=== PATIENT | female | born 1960 | race African-American/Black ===

== ENCOUNTER 2021-06-20 18:14 | Emergency (ER) | payer MEDICAID, SELFPAY ==
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
[2021-06-20 18:16] VITALS: BP 191/84; PULSE 95; RESP 20; TEMP 36.1; O2SAT 95
--- NOTE | 2021-06-20 20:08 | ED.GENADULT ---
HPI - General Adult General Chief complaint: Headache Stated complaint: headache, not feeling well Time Seen by Provider: 06/20/21 19:26 History of Present Illness HPI narrative: Patient is a 61-year-old female that presents the emergency department with chief complaint of flulike symptoms. Patient reports that she has been vaccinated with Covid patient states that she is been coughing having headache body aches patient has had nausea no vomiting patient states symptoms or not improved by anything nor they worsened by anything the patient reports that she is a resident of a local senior care reports that also she has history of diabetes but has not been taking her oral hypoglycemics for several months because she ran out. Patient also reports has not been checking her blood sugars. Related Data Allergies Allergy/AdvReac Type Severity Reaction Status Date / Time NKDA Allergy Unknown Unknown Uncoded 06/20/21 20:18 NONE Allergy Unknown Unknown Uncoded 06/20/21 20:18 Review of Systems Review of Systems: A 10 system review of systems was completed on the patient and is negative except for what is stated in the HPI. Nursing and ancillary documentation was reviewed. PMFSH Comments Type 2 diabetes Exam Narrative: GENERAL: Well-appearing, well-nourished, and in no acute distress. HEAD: Normocephalic, atraumatic. EYES: PERRLA and EOMI. ENT: Nares clear, no rhinorrhea or epistaxis. Mucous membranes moist. NECK: Supple. CHEST: Clear to auscultation. No respiratory distress. HEART: Regular rate and rhythm. No murmur heard. Normal peripheral pulses. ABDOMEN: Soft, nontender, nondistended, normal active bowel sounds. EXTREMITIES: Normal range of motion. No edema. SKIN: Warm, dry, no rash. NEURO: No focal deficits. Alert and oriented x3. PSYCH: Normal mood and affect. Course Vital Signs Vital signs: Vital Signs Temperature 36.1 C L 06/20/21 18:16 Pulse Rate 95 06/20/21 18:16 Respiratory Rate 20 06/20/21 18:16 Blood Pressure 191/84 H 06/20/21 18:16 Pulse Oximetry 95 06/20/21 18:16 Temperature 36.1 C L 06/20/21 18:16 Pulse Rate 90 06/20/21 21:05 Respiratory Rate 17 06/20/21 21:05 Blood Pressure 164/84 H 06/20/21 21:05 Pulse Oximetry 97 01/07/22 21:05 Medical Decision Making Vital Signs Vital Signs: Vital Signs Temperature 36.1 C L 06/20/21 18:16 Pulse Rate 95 06/20/21 18:16 Respiratory Rate 20 06/20/21 18:16 Blood Pressure 191/84 H 06/20/21 18:16 Pulse Oximetry 95 06/20/21 18:16 Temperature 36.1 C L 06/20/21 18:16 Pulse Rate 90 06/20/21 21:05 Respiratory Rate 17 06/20/21 21:05 Blood Pressure 164/84 H 06/20/21 21:05 Pulse Oximetry 97 06/20/21 21:05 Lab Data Result diagrams: 06/20/21 20:23 06/20/21 20:23 Labs: Lab Results 06/20/21 06/20/21 06/20/21 Range/Units 20:23 20:23 20:23 WBC 7.3 (4.5-10.0) K/mm3 RBC 4.98 (4.2-5.4) M/mm3 Hgb 13.4 (12.0-15.0) g/dL Hct 42.3 (37.0-47.0) % MCV 84.9 (80-100) fl MCH 26.9 (26-34) pg MCHC 31.7 L (32-36) g/dl RDW 14.3 (11.5-14.5) % Plt Count 195 (150-375) k/mm3 MPV 10.2 (7.4-10.4) fl Immature Gran % (Auto) 0.3 (0-0.5) % Neut % (Auto) 56.9 (45.5-73.1) % Lymph % (Auto) 31.2 (18.3-44.2) % [place] % (Auto) 10.2 H (2.6-8.5) % Eos % (Auto) 0.8 (0-4.4) % Baso % (Auto) 0.6 (0.2-1.2) % Lymph # (Auto) 2.26 (0.9-3.2) K/mm3 [place] # (Auto) 0.7 H (0.1-0.6) K/mm3 Eos # (Auto) 0.1 (0-0.3) K/mm3 Baso # (Auto) 0.0 (0.0-0.1) K/mm3 Abs Immat Gran (auto) 0.02 (0.00-0.031) K/mm3 Absolute Neuts (auto) 4.1 (1.3-6.7) K/mm3 Absolute Nucleated RBC 0.0 (0.0-0.012) K/mm3 Nucleated RBC % 0.0 (0.0-0.2) % Sodium 140 (137-145) mmol/L Potassium 3.6 (3.4-5.0) mmol/L Chloride 104 (98-107) mmol/L Carbon Dioxide 25 (22-30) mmol/L Anion Gap 11 (8-16) mmol/L BUN 15 (7-17) mg/
[2021-06-20 20:34] LABS: Basophils Percent Auto 0.6 % (0.2-1.2); Eosinophils Absolute Auto 0.1 K/mm3 (0-0.3); Eosinophils Percent Auto 0.8 % (0-4.4); Hematocrit 42.3 % (37.0-47.0); Hemoglobin 13.4 g/dL (12.0-15.0); Immature Granulocyte Absolute 0.02 K/mm3 (0.00-0.031); Immature Granulocyte Percent A 0.3 % (0-0.5); Lymphocytes Absolute Auto 2.26 K/mm3 (0.9-3.2); Lymphocytes Percent Auto 31.2 % (18.3-44.2); Mean Corpuscular HGB Conc 31.7 g/dl (32-36); Mean Corpuscular Hemoglobin 26.9 pg (26-34); Mean Corpuscular Volume 84.9 fl (80-100); Mean Platelet Volume 10.2 fl (7.4-10.4); Monocytes Absolute Auto 0.7 K/mm3 (0.1-0.6); Monocytes Percent Auto 10.2 % (2.6-8.5); Neutrophils Absolute Auto 4.1 K/mm3 (1.3-6.7); Neutrophils Percent Auto 56.9 % (45.5-73.1); Platelet Count Result 195 k/mm3 (150-375); Red Blood Count 4.98 M/mm3 (4.2-5.4); Red Cell Distribution Width 14.3 % (11.5-14.5); White Blood Count 7.3 K/mm3 (4.5-10.0)
[2021-06-20 20:57] LABS: Add Urine Microscopic? YES; Appearance Urine Clear (Clear); Bacteria Urine Trace /hpf; Bilirubin Urine Negative (Negative); Budding Yeast Urine Present /hpf; Color Urine Yellow (Yellow); Glucose Urine UA 1+ mg/dL (Negative); Ketones Urine Negative (Negative); Leukocyte Esterase Ur Negative LEU/UL (Negative); Mucus Urine Rare /lpf; Nitrate Urine Negative (Negative); Protein Urine Negative (Negative); Specific Grav Ur 1.016 (1.001-1.035); Squamous Epithelial Cell Urine Occasional /hpf (Few); Urobilinogen Urine Negative mg/dL (<2.0); WBC Urine 16-20 /hpf
[2021-06-20 20:58] LABS: Alanine Aminotransferase 23 U/L (4-35); Albumin Level 4.5 g/dL (3.5-5.1); Alkaline Phosphatase 85 U/L (38-126); Anion Gap 11 mmol/L (8-16); Aspartate Amino Transferase 29 U/L (14-36); Bilirubin,Total 0.3 mg/dL (0.2-1.3); Blood Urea Nitrogen 15 mg/dL (7-17); Calcium 9.7 mg/dL (8.4-10.2); Carbon Dioxide 25 mmol/L (22-30); Chloride 104 mmol/L (98-107); Estimated CRCL calculation 67 ml/min; Estimated Glomerular Filt Rate > 60; Glucose 147 mg/dL (65-110); Lactic Acid Reflex 1.5 mmol/L (0.7-2.1); Potassium 3.6 mmol/L (3.4-5.0); Sodium 140 mmol/L (137-145)
[2021-06-20] MEDS: KETOROLAC 15 MG/ML VIAL (*BKC) IV PUSH (21:01)
[2021-06-20 21:02] LABS: Blood Urine Negative (Negative)
[2021-06-20] MEDS: PROCHLORPERAZINE EDISYLATE 10 MG/2 ML VIAL IV PUSH (21:02)
[2021-06-20] MEDS: diphenhydrAMINE HCl INJ 50 MG/ML VIAL IV PUSH (21:02)
[2021-06-20] MEDS: SODIUM CHLORIDE 0.9% IV 1,000 ML 999 ML IV CONT (21:03)
[2021-06-20 21:05] VITALS: BP 164/84; PULSE 90; RESP 17; O2SAT 97
[2021-06-20 21:23] LABS: SARS-CoV-2 RNA PCR Positive
[2021-06-20 22:56] VITALS: BP 144/82; PULSE 82; RESP 15; O2SAT 97
== END 2021-06-20 22:58 | disposition home or self-care (01) ==
PROVIDERS: Emergency Provider Emergency Medicine
DX: U07.1 COVID-19 (principal); J12.82 Pneumonia due to coronavirus disease 2019; E11.9 Type 2 diabetes mellitus without complications; Z91.14 Patient's other noncompliance with medication regimen
CPT/HCPCS: 36415; 71045; 80053; 81001; 83605; 85025; 87086; 87804; 96361; 96374; 96375; 99284; C9803; J0780; J1200; J1885; J7030; U0003; U0005

== ENCOUNTER 2021-08-01 07:44 | Outpatient (CLI) | payer MEDICAID, SELFPAY ==
--- NOTE | ~2021-08-01 | MM_ITS ---
EXAMINATION: MM screening vernell BI w andrew HISTORY: Screening TECHNIQUE: Craniocaudal and mediolateral oblique 3-D tomosynthesis images were obtained and synthetic 2-D images were generated. CAD analysis was submitted and interpreted. COMPARISON: No prior mammogram is available for comparison at this institution. BREAST PARENCHYMAL COMPOSITION: There are scattered areas of fibroglandular density. FINDINGS: There is no evidence of suspicious mass, calcification, or architectural distortion to sugg est malignancy in either breast. There has been no suspicious interval change. IMPRESSION: 1. No mammographic evidence of malignancy. 2. Recommend routine screening mammography in one year. BI-RADS Category 1: Negative Reviewed, dictated and finalized at location A. UALIZATION CONSULTANT
== END 2021-08-01 07:45 | disposition home or self-care (01) ==
LOC: ANHIMG 07:52
PROVIDERS: Visit Provider Emergency Medicine
DX: Z12.31 Encounter for screening mammogram for malignant neoplasm of breast (principal)
CPT/HCPCS: 77063; 77067

== ENCOUNTER 2021-09-10 18:04 | Emergency (ER) | payer MEDICAID, SELFPAY ==
[2021-09-10] VITALS (24 sets, daily range): BP systolic 168–211; BP diastolic 84–106; PULSE 80–102; RESP 15–21; TEMP 37.1; O2SAT 94–99
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
--- NOTE | 2021-09-10 18:08 | ECG_ITS ---
Measurements Intervals [place] Rate: 91 P: 57 FL: 128 QRS: 11 QRSD: 85 T: -2 QT: 376 QTc: 465 Interpretive Statements SINUS RHYTHM MINIMAL VOLTAGE CRITERIA FOR LVH, CONSIDER NORMAL VARIANT [MEETS CRITERIA IN ONE OF: R(aVL), S(V1), R(V5), R(V5/V6)+S(V1)] SEPTAL MYOCARDIAL INFARCTION , OF INDETERMINATE AGE [40+ ms Q WAVE IN V1/V2] ST AND ABNORMALITY INFERIOR LEADS, CONSIDER MYOCARDIAL ISCHEMIA ABNORMAL ECG NO PREVIOUS ECG AVAILABLE FOR COMPARISON Electronically Signed On 09-11-2021 15:32:20 CDT by Jc Hoang M.D.
[2021-09-10 18:33] LABS: Basophils Percent Auto 0.4 % (0.2-1.2); Eosinophils Absolute Auto 0.2 K/mm3 (0-0.3); Eosinophils Percent Auto 2.7 % (0-4.4); Hematocrit 39.3 % (37.0-47.0); Hemoglobin 12.3 g/dL (12.0-15.0); Immature Granulocyte Absolute 0.03 K/mm3 (0.00-0.031); Immature Granulocyte Percent A 0.3 % (0-0.5); Lymphocytes Absolute Auto 4.63 K/mm3 (0.9-3.2); Lymphocytes Percent Auto 51.2 % (18.3-44.2); Mean Corpuscular HGB Conc 31.3 g/dl (32-36); Mean Corpuscular Hemoglobin 27.1 pg (26-34); Mean Corpuscular Volume 86.6 fl (80-100); Mean Platelet Volume 10.5 fl (7.4-10.4); Monocytes Absolute Auto 0.6 K/mm3 (0.1-0.6); Monocytes Percent Auto 6.5 % (2.6-8.5); Neutrophils Absolute Auto 3.5 K/mm3 (1.3-6.7); Neutrophils Percent Auto 38.9 % (45.5-73.1); Platelet Count Result 269 k/mm3 (150-375); Red Blood Count 4.54 M/mm3 (4.2-5.4); Red Cell Distribution Width 15.3 % (11.5-14.5); White Blood Count 9.1 K/mm3 (4.5-10.0)
[2021-09-10 18:49] LABS: Alanine Aminotransferase 19 U/L (4-35); Albumin Level 4.5 g/dL (3.5-5.1); Alkaline Phosphatase 79 U/L (38-126); Anion Gap 7 mmol/L (8-16); Aspartate Amino Transferase 29 U/L (14-36); Bilirubin,Total 0.3 mg/dL (0.2-1.3); Blood Urea Nitrogen 11 mg/dL (7-17); Calcium 9.3 mg/dL (8.4-10.2); Carbon Dioxide 24 mmol/L (22-30); Chloride 109 mmol/L (98-107); Estimated CRCL calculation 67 ml/min; Estimated Glomerular Filt Rate > 60; Glucose 99 mg/dL (65-110); Lipase 60 U/L (23-300); Potassium 4.2 mmol/L (3.4-5.0); Sodium 140 mmol/L (137-145)
[2021-09-10 18:50] LABS: Prothrombin Time 12.8 Seconds (11.1-14.7)
[2021-09-10 18:51] LABS: Partial Thromboplastin Time 29.6 SECONDS (22.3-36.8)
[2021-09-10 18:54] LABS: Troponin I < 0.012 ng/mL (0.000-0.034)
[2021-09-10] MEDS: ASPIRIN 81 MG CHEWABLE TABLET 324 MG PO (20:33)
[2021-09-10] MEDS: amLODIPine BESYLATE 5 MG TABLET 10 MG PO (20:33)
--- NOTE | 2021-09-10 20:56 | ED.CHESTPAIN ---
HPI - Chest Pain General Chief Complaint: Chest Pain Stated Complaint: chest pain Time Seen by Provider: 09/10/21 18:13 Source: patient Mode of arrival: ambulatory Limitations: no limitations History of Present Illness HPI narrative: 61-year-old with a history of bipolar disorder, hypertension, med noncompliance on and off for last 1 month. Patient was seen earlier by her primary doctor who later referred to the ER. Patient states that pain is in the epigastric area burning in nature lasting for 3 seconds or more. She denies any fever or chills. Has occasional shortness of breath. MD complaint: chest pain Onset (ago): week(s) Timing of current episode: episodic Prior episodes: No Pain location: substernal Pain radiation: none Quality: sharp Relieving factors: nothing Exacerbating factors: nothing Related Data Allergies Allergy/AdvReac Type Severity Reaction Status Date / Time No Known Allergies Allergy Verified 09/10/21 18:10 Review of Systems Review of Systems: All systems reviewed & are unremarkable except as noted in HPI and below Eyes: Eyes: Reports no additional eye complaints ENT: Reports system reviewed and no additional complaints, except as documented Cardiovascular: Cardiovascular: Reports as per HPI Respiratory: Respiratory: Reports no additional respiratory complaints Gastrointestinal: Gastrointestinal: Reports no additional gastrointestinal complaints Musculoskeletal: Musculoskeletal: Reports no additional musculoskeletal complaints Exam Narrative: GENERAL: Well-appearing, well-nourished, and in no acute distress. HEAD: Normocephalic, atraumatic. EYES: PERRLA and EOMI. ENT: Nares . Mucous membranes moist. NECK: Supple. CHEST: Clear to auscultation. No respiratory distress. HEART: Regular rate and rhythm. No murmur heard. Normal peripheral pulses. ABDOMEN: Soft, nontender, nondistended, normal active bowel sounds. EXTREMITIES: Normal range of motion. No edema. SKIN: Warm, dry, no rash. NEURO: No focal deficits. Alert and oriented x3. PSYCH: Normal mood and affect. Course Course Emergency Course: 61-year-old with intermittent chest pain with med noncompliance here with chest pain. unremarkable EKG is normal, she remained asymptomatic while she was here in the ER informed her about the lab work. Advised her to continue home medications. Follow-up with her primary doctor. Vital Signs Vital signs: Vital Signs Temperature 37.1 C 09/10/21 18:08 Pulse Rate 90 09/10/21 18:08 Respiratory Rate 18 09/10/21 18:08 Blood Pressure 211/106 H 09/10/21 18:08 Pulse Oximetry 97 09/10/21 18:08 Temperature 37.1 C 09/10/21 18:08 Pulse Rate 90 09/10/21 18:08 Respiratory Rate 18 09/10/21 18:08 Blood Pressure 211/106 H 09/10/21 18:08 Pulse Oximetry 97 09/10/21 18:08 MDM - Chest Pain Lab Data Result diagrams: 09/10/21 18:26 09/10/21 18:26 Labs: Lab Results 09/10/21 09/10/21 09/10/21 Range/Units 18:26 18:26 18:26 WBC 9.1 (4.5-10.0) K/mm3 RBC 4.54 (4.2-5.4) M/mm3 Hgb 12.3 (12.0-15.0) g/dL Hct 39.3 (37.0-47.0) % MCV 86.6 (80-100) fl MCH 27.1 (26-34) pg MCHC 31.3 L (32-36) g/dl RDW 15.3 H (11.5-14.5) % Plt Count 269 (150-375) k/mm3 MPV 10.5 H (7.4-10.4) fl Immature Gran % (Auto) 0.3 (0-0.5) % Neut % (Auto) 38.9 L (45.5-73.1) % Lymph % (Auto) 51.2 H (18.3-44.2) % [place] % (Auto) 6.5 (2.6-8.5) % Eos % (Auto) 2.7 (0-4.4) % Baso % (Auto) 0.4 (0.2-1.2) % Lymph # (Auto) 4.63 H (0.9-3.2) K/mm3 [place] # (Auto) 0.6 (0.1-0.6) K/mm3 Eos # (Auto) 0.2 (0-0.3) K/mm3 Baso # (Auto) 0.0 (0.0-0.1) K/mm3 Abs Immat Gran (auto) 0.03 (0.00-0.031) K/mm3 Absolute Neuts (auto) 3.5 (1.3-6.7) K/mm3 Absolute Nucleated RBC 0.0 (0.0-0.012) K/mm3 Nucleated RBC % 0.0 (0.0-0.2) % PT 12.8 (11.1-14.7) Seconds INR 1.0 APTT 29.6 (22.3-36
[2021-09-10 21:24] LABS: Troponin I < 0.012 ng/mL (0.000-0.034)
== END 2021-09-10 22:48 | disposition home or self-care (01) ==
PROVIDERS: Emergency Provider Family Medicine; PCP Emergency Medicine
DX: R07.89 Other chest pain (principal)
CPT/HCPCS: 36415; 71046; 80053; 83690; 84484; 85025; 85610; 85730; 93005; 99284; A9270

== ENCOUNTER 2021-09-15 11:58 | Outpatient (CLI) | payer OTHER, SELFPAY ==
--- NOTE | ~2021-09-15 | XR_ITS ---
EXAMINATION: XR hand RT min 3V, XR hand LT min 3V, XR wrist RT min 3V, XR wrist LT min 3V DATE: 09/15/2021 13:28 INDICATION: Right hand and wrist pain. Left hand and wrist swelling with flexion contracture. TECHNIQUE: 1. Posteroanterior, ulnar deviation, oblique, and lateral views of the left wrist were obtained. 2. Dorsal palmar, oblique and lateral views of the left hand were obtained. 3. Posteroanterior, ulnar deviation, oblique, and lateral views of the right wrist were obtained. 2. Dorsal palmar, oblique and lateral views of the right hand were obtained. COMPARISON: None. FINDINGS: Normal alignment at the bilateral hands and wrists. No fracture. Relatively symmetric pattern of mild polyarticular osteoarthritis at the bilateral distal radioulnar, triscaphe, first carpometacarpal an d multiple interphalangeal joints distal predominance. No erosions to suggest an inflammatory arthrit is. Metallic BB projecting over the soft tissues at the dorsal aspect of the left forearm. Soft tissu es are otherwise unremarkable. IMPRESSION: 1. 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 Reviewed, dictated and finalized at location B. IMPRESSION: 1. Typical pattern of asymmetric mild polyarticular osteoarthritis at the [facility] hands and wrists. IMPRESSION: 1. Typical pattern of asymmetric mild polyarticular osteoarthritis at the [facility] hands and wrists. IMPRESSION: 1. Typical pattern of asymmetric mild polyarticular osteoarthritis at the [facility] hands and wrists.
[2021-09-15 12:42] LABS: Cholesterol 235 mg/dL (0-200); HDL Direct 41 mg/dL; Triglycerides 132 mg/dL (<150); Uric Acid 4.7 mg/dL (2.5-7.5)
[2021-09-15 12:45] LABS: Rheumatoid Factor < 12.0 IU/ML (<12)
[2021-09-15 12:52] LABS: LDL Cholesterol Direct 143 mg/dL
[2021-09-15 13:13] LABS: Thyroid Stimulating Hormone 0.397 uIU/mL (0.465-4.680)
[2021-09-15 13:22] LABS: Creatinine Urine 92.3 mg/dL
[2021-09-15 13:22] LABS: Free T4 Free Thyroxine 0.94 ng/mL (0.78-2.19)
[2021-09-15 13:25] LABS: Erythrocyte Sedimentation Rate 24 mm/hr (0-20)
[2021-09-15 13:37] LABS: Hemoglobin A1C 7.6 % (<5.7)
[2021-09-15 14:00] LABS: MALB Creatinine Ratio < 6.5 mg/g (0-30); Microalbumin Urine Random < 6.0 mg/L (0-16.7)
== END 2021-09-15 11:59 | disposition home or self-care (01) ==
PROVIDERS: PCP Emergency Medicine; Visit Provider Emergency Medicine
DX: E11.9 Type 2 diabetes mellitus without complications (principal); I10 Essential (primary) hypertension; M79.89 Other specified soft tissue disorders; M19.041 Primary osteoarthritis, right hand; M19.042 Primary osteoarthritis, left hand; M19.031 Primary osteoarthritis, right wrist; M19.032 Primary osteoarthritis, left wrist
CPT/HCPCS: 36415; 73110; 73130; 80061; 82043; 82306; 83036; 84439; 84443; 84550; 85652; 86038; 86430